=== PATIENT | male | born 1980 | race Caucasian/White ===

== ENCOUNTER 2025-05-29 10:40 | Outpatient (CLI) | payer OTHER, SELFPAY ==
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
== END 2025-05-29 10:41 | disposition home or self-care (01) ==
PROVIDERS: Visit Provider Otolaryngology
DX: H90.42 Sensorineural hearing loss, unilateral, left ear, with unrestricted hearing on the contralateral side (principal); H74.01 Tympanosclerosis, right ear; Z87.820 Personal history of traumatic brain injury
CPT/HCPCS: 92557; 92567